=== PATIENT | female | born 1950 | race Caucasian/White ===

== ENCOUNTER 2021-02-13 23:49 | Inpatient (IN) | payer MEDICARE, OTHER ==
[~2021-02-13] VITALS: Ht 154.9 cm; Wt 123.0 kg
[~2021-02-13 23:49] MED LIST: ANTIVERT25 MG PO; MACROBID100 MG PO
[2021-02-14 00:30] LABS: BASOPHIL 0.3 % (0-2); EOSINOPHIL 0 % (0-7); HCT 47.7 % (37.0-47.0); HGB 15.9 g/dl (12.5-16.0); LYMPHOCYTE 28.1 % (15-48); MCH 30.1 pg (25.0-31.0); MCHC 33.3 g/dL (32.0-36.0); MCV 90.3 fL (78.0-100.0); MONOCYTE 5.4 % (0-12); MPV 9.8 fL (6.0-9.5); NEUTROPHIL 65.5 % (41-80); NRBC 0; PLT 222 K/uL (150-400); RBC 5.28 M/uL (4.20-5.40); RDW 12.2 % (11.5-14.0); WBC 9.9 K/uL (4.0-10.5)
[2021-02-14 00:44] LABS: INR 1.1 (0.9-1.2); PROTHROMBIN TIME 13.6 SECONDS (11.8-13.4); PTT 22.7 SECONDS (24.4-34.7)
[2021-02-14 00:49] LABS: ALBUMIN 3.6 g/dL (3.4-5.0); BILIRUBIN - TOTAL 0.8 mg/dL (0.2-1.0); C-REACTIVE PROTEIN 0.4 mg/dL (<=0.90); CREATININE 0.5 mg/dL (0.51-0.95); GLOBULIN (CALCULATION) 3.8 g/dL; POTASSIUM 4.6 mmol/L (3.5-5.1); TOTAL PROTEIN 7.4 g/dL (6.4-8.2)
[2021-02-14 00:55] LABS: PRO-BNP 765 pg/mL (<125)
[2021-02-14 00:59] LABS: D-DIMER 3.06 ug/mLFEU (0.00-0.41)
[2021-02-14 01:06] LABS: BILIRUBIN 1+ mg/dL (NEGATIVE); BLOOD 2+ Ery/uL (NEGATIVE); CLARITY CLEAR (CLEAR); COLOR YELLOW (YELLOW); GLUCOSE (U) NORMAL (NORMAL); LEUKOCYTES 3+ Leu/uL (NEGATIVE); NITRITE NEGATIVE (NEGATIVE); PROTEIN 2+ mg/dL (NEGATIVE)
[2021-02-14 01:34] LABS: URINARY WBC TNTC
[2021-02-14 01:35] LABS: AMORPHOUS PHOSPHATE CRYSTALS MODERATE; BACTERIA 4+
[2021-02-14 01:37] LABS: LACTIC ACID 1.1 mmol/L (0.4-1.9)
[2021-02-14 03:17] LABS: ACETAMINOPHEN (TYLENOL) < 2.0 ug/mL (10.0-30.0)
[2021-02-14 03:23] LABS: AMPHETAMINES NEGATIVE (NEGATIVE); BARBITURATES NEGATIVE (NEGATIVE); ECSTASY (MDMA) NEGATIVE (NEGATIVE); MARIJUANA (THC) NEGATIVE (NEGATIVE); METHADONE NEGATIVE (NEGATIVE); OPIATES NEGATIVE (NEGATIVE); OXYCODONE NEGATIVE (NEGATIVE)
[2021-02-14] MEDS ORDERED: LOPRESSOR25 MG PO (08:20)
[2021-02-14] MEDS ORDERED: ASPIRIN EC81 MG PO (08:20)
[2021-02-14] MEDS ORDERED: GLUCOTROL5 MG PO (08:21)
[2021-02-14] MEDS ORDERED: ZOCOR40 MG PO (08:21)
[2021-02-14] MEDS ORDERED: ZOLOFT100 MG PO (08:22)
[2021-02-14] MEDS ORDERED: METFORMIN HCL500 MG PO ×2 (08:22→08:23)
[2021-02-14] MEDS ORDERED: VITAMIN D3125 MC1 PO (08:24)
[2021-02-14] MEDS ORDERED: JANUVIA50 MG PO (08:24)
[2021-02-14] MEDS ORDERED: ZESTRIL5 MG PO (08:25)
--- NOTE | 2021-02-14 12:41 | NUR ---
02/14/21 Ms. Olivo lives at home with her spouse. She has a rw and 3in1. The couple have 4 children. The children assist with houekeeping and transportation. Will monitor for discharge planning needs.
[2021-02-15 07:03] LABS: BASOPHIL 0.3 % (0-2); EOSINOPHIL 0 % (0-7); HCT 46.6 % (37.0-47.0); HGB 14.8 g/dl (12.5-16.0); LYMPHOCYTE 10.9 % (15-48); MCH 30.3 pg (25.0-31.0); MCHC 31.8 g/dL (32.0-36.0); MONOCYTE 8.2 % (0-12); MPV 9.2 fL (6.0-9.5); NEUTROPHIL 79.7 % (41-80); NRBC 0; PLT 211 K/uL (150-400); RBC 4.89 M/uL (4.20-5.40); RDW 12.6 % (11.5-14.0); WBC 16.9 K/uL (4.0-10.5)
[2021-02-15 07:05] LABS: MCV 95.3 fL (78.0-100.0)
[2021-02-15 07:39] LABS: ALBUMIN 3.1 g/dL (3.4-5.0); BILIRUBIN - TOTAL 0.6 mg/dL (0.2-1.0); CREATININE 0.5 mg/dL (0.51-0.95); GLOBULIN (CALCULATION) 3.5 g/dL; MAGNESIUM 1.9 mg/dL (1.8-2.4); TOTAL PROTEIN 6.6 g/dL (6.4-8.2)
--- NOTE | 2021-02-16 01:49 | NUR ---
DAUGHTER CAME UP TO NURSE STATION SAYING THE PT WAS HAVING SEIZURE LIKE ACTIVITY, NURSE DID NOT SEE THE EPISODE. PT STARTED TO SHAKE AGAIN A FEW HOURS LATER WHILE NURSE WAS IN ROOM. CRISELDA ACOSTA CAME TO SEE PT AND SAID IT WAS NOT ANY TYPE OF SEIZURE ACTIVITY, THOUGH THE "EPISODE" HAD PASSED. NURSE STILL CONTINUOUSLY MONITORING
[2021-02-16 04:34] LABS: BASOPHIL 0.3 % (0-2); EOSINOPHIL 0 % (0-7); HCT 48.7 % (37.0-47.0); HGB 15.5 g/dl (12.5-16.0); LYMPHOCYTE 9.7 % (15-48); MCH 30.2 pg (25.0-31.0); MCHC 31.8 g/dL (32.0-36.0); MCV 94.7 fL (78.0-100.0); MONOCYTE 7.9 % (0-12); MPV 9.9 fL (6.0-9.5); NEUTROPHIL 80.7 % (41-80); NRBC 0; PLT 222 K/uL (150-400); RBC 5.14 M/uL (4.20-5.40); RDW 12.7 % (11.5-14.0); WBC 15.8 K/uL (4.0-10.5)
[2021-02-16 04:58] LABS: BILIRUBIN - TOTAL 0.6 mg/dL (0.2-1.0); BUN/CREAT RATIO (CALC) 29.1 RATIO; CREATININE 0.55 mg/dL (0.51-0.95); GLOBULIN (CALCULATION) 3.7 g/dL; MAGNESIUM 1.7 mg/dL (1.8-2.4); POTASSIUM 3.8 mmol/L (3.5-5.1); TOTAL PROTEIN 6.7 g/dL (6.4-8.2)
--- NOTE | 2021-02-16 06:42 | NUR ---
PRN MEDS AND TIMES TYLENOL SUP. 1124 1T ATIVAN 0.25 2208 1T ATIVAN 0.50 211 1T TORDOL 2340 1T LOPRESSOR 5MG 2340/ 0014 1 T MORPHINE 0043 1T BUMEX 0044 MAGNESIUM 0608
[2021-02-17 04:07] LABS: BASOPHIL 0.3 % (0-2); EOSINOPHIL 0 % (0-7); HCT 50.7 % (37.0-47.0); HGB 15.9 g/dl (12.5-16.0); LYMPHOCYTE 5.6 % (15-48); MCH 29.8 pg (25.0-31.0); MCHC 31.4 g/dL (32.0-36.0); MCV 94.9 fL (78.0-100.0); MONOCYTE 4.8 % (0-12); MPV 10.1 fL (6.0-9.5); NEUTROPHIL 87.9 % (41-80); NRBC 0; PLT 220 K/uL (150-400); RBC 5.34 M/uL (4.20-5.40); RDW 13.2 % (11.5-14.0); WBC 12.3 K/uL (4.0-10.5)
[2021-02-17 04:31] LABS: ALBUMIN 2.7 g/dL (3.4-5.0); BILIRUBIN - TOTAL 0.7 mg/dL (0.2-1.0); BUN/CREAT RATIO (CALC) 44.7 RATIO; CREATININE 0.47 mg/dL (0.51-0.95); GLOBULIN (CALCULATION) 4.1 g/dL; MAGNESIUM 2.1 mg/dL (1.8-2.4); POTASSIUM 3.9 mmol/L (3.5-5.1); TOTAL PROTEIN 6.8 g/dL (6.4-8.2)
--- NOTE | 2021-02-17 18:18 | NUR ---
02/17/21 1600 ORDERS RECEIVED FOR MIDLINE. PROCEDURE EXPLAINED TO PT'S FAMILY. PT PREPPED AND DRAPED IN SERILE FASHION, THE PT'S LEFT UPPER BASILIC VEIN WAS VISUALIZED THE SITE RITE SIX. A 21GA NEEDLE WAS USED, GOOD BLOOD RETURN WAS NOTED. THE GUIDE WIRE THREADED EASILY. THE SHEATHE WAS REMOVED AND THE CATHETER WAS PLACED OVER THE WIRE. THE WIRE WAS THEN REMOVED. A CONNECTOR WAS FLUSHED AND PLACED ON THE END OF THE CATHETER. PT HAS A 20GA 10CM POWER GLIDE MIDLINE CATHETER. PT TOLERATED WELL. GOOD FOR 29 DAYS. NOT A CENTRAL LINE.
[2021-02-18 06:11] LABS: BASOPHIL 0.4 % (0-2); EOSINOPHIL 0.3 % (0-7); HCT 49.4 % (37.0-47.0); HGB 15.7 g/dl (12.5-16.0); LYMPHOCYTE 7.4 % (15-48); MCHC 31.8 g/dL (32.0-36.0); MCV 94.3 fL (78.0-100.0); MONOCYTE 4.1 % (0-12); MPV 10.7 fL (6.0-9.5); NEUTROPHIL 85.6 % (41-80); NRBC 0; PLT 259 K/uL (150-400); RBC 5.24 M/uL (4.20-5.40); RDW 13.2 % (11.5-14.0)
[2021-02-18 06:35] LABS: ALBUMIN 2.5 g/dL (3.4-5.0); BILIRUBIN - TOTAL 0.6 mg/dL (0.2-1.0); BUN/CREAT RATIO (CALC) 54.8 RATIO; CREATININE 0.42 mg/dL (0.51-0.95); GLOBULIN (CALCULATION) 4.1 g/dL; MAGNESIUM 1.9 mg/dL (1.8-2.4); POTASSIUM 3.9 mmol/L (3.5-5.1); TOTAL PROTEIN 6.6 g/dL (6.4-8.2)
--- NOTE | 2021-02-18 18:27 | NUR ---
PT WAS TRANSFERED FROM TCU 3 TO TCU 5 AT 1300 1319 5MG VERSED WAS GIVEN 1330 20MG OF ETOMADATE PT WAS INTUBATED AT 1334 BY MD MARCELO RT SAM AND RT ILO KING DIPRIVAN WAS STARTED AT 1350 PT WAS ON 50MCG TILL 1430 BLOOD PRESSURE REMAINED STABLE DIPRIVAN WAS DECREASED TO 20MCG AT 1433 DR MARCELO PLACED A TRIPLE LUMEN ENTRAL LINE IN THE RIGHT INTERNAL JUGULAR VEIN FERNANDO HOLLIDAY PLACED A OG TUBE BOTH CENTRAL LINE AND OG TUBE CONFIRMED PALCEMENT BY CHEST X RAY DIPRIVAN WAS SWITCHED FROM MIDLINE TO CENTRAL LINE PT VITAL SIGNS STABLE NO DISTRESS IS NOTED APPEARS COMFORTABLE
--- NOTE | 2021-02-18 18:57 | NUR ---
[address] MARCELO OF MOST RECENT ABG RESULTS PH 7.427 PCO2 48.5 PO2 162 BICARB 31.9 BASE EXCESS 6.3 TOTAL CO2 33.4 OS SAT 99.8% NO NEW ORDERS SPOKE TO KARLA ABURTO 1858 FIO2 WAS DECREASED TO 80%
[2021-02-19 04:23] LABS: BASOPHIL 0.3 % (0-2); EOSINOPHIL 0 % (0-7); HCT 44.3 % (37.0-47.0); HGB 14.2 g/dl (12.5-16.0); LYMPHOCYTE 10.2 % (15-48); MCH 30.1 pg (25.0-31.0); MCHC 32.1 g/dL (32.0-36.0); MCV 93.9 fL (78.0-100.0); MONOCYTE 5.6 % (0-12); MPV 10.3 fL (6.0-9.5); NEUTROPHIL 82.7 % (41-80); NRBC 0; PLT 239 K/uL (150-400); RBC 4.72 M/uL (4.20-5.40); RDW 13.3 % (11.5-14.0); WBC 7.3 K/uL (4.0-10.5)
[2021-02-19 04:44] LABS: ALBUMIN 2.1 g/dL (3.4-5.0); BILIRUBIN - TOTAL 0.6 mg/dL (0.2-1.0); BUN/CREAT RATIO (CALC) 53.7 RATIO; CREATININE 0.54 mg/dL (0.51-0.95); GLOBULIN (CALCULATION) 3.6 g/dL; TOTAL PROTEIN 5.7 g/dL (6.4-8.2)
[2021-02-20 04:21] LABS: BASOPHIL 0.2 % (0-2); EOSINOPHIL 0 % (0-7); HCT 42.1 % (37.0-47.0); HGB 13.7 g/dl (12.5-16.0); LYMPHOCYTE 15.5 % (15-48); MCH 30.1 pg (25.0-31.0); MCHC 32.5 g/dL (32.0-36.0); MCV 92.5 fL (78.0-100.0); MONOCYTE 7.2 % (0-12); MPV 10.9 fL (6.0-9.5); NEUTROPHIL 76.1 % (41-80); NRBC 0; PLT 236 K/uL (150-400); RBC 4.55 M/uL (4.20-5.40); RDW 13.1 % (11.5-14.0); WBC 6.3 K/uL (4.0-10.5)
[2021-02-20 04:40] LABS: BILIRUBIN - TOTAL 0.7 mg/dL (0.2-1.0); BUN/CREAT RATIO (CALC) 70.8 RATIO; CREATININE 0.48 mg/dL (0.51-0.95); GLOBULIN (CALCULATION) 3.4 g/dL; MAGNESIUM 1.8 mg/dL (1.8-2.4); PHOSPHORUS 2.1 mg/dL (2.6-4.7); POTASSIUM 3.8 mmol/L (3.5-5.1); TOTAL PROTEIN 5.4 g/dL (6.4-8.2)
[2021-02-21 04:47] LABS: CREATININE 0.47 mg/dL (0.51-0.95); MAGNESIUM 1.6 mg/dL (1.8-2.4); POTASSIUM 3.9 mmol/L (3.5-5.1)
[2021-02-21 08:58] LABS: BASOPHIL 0.2 % (0-2); EOSINOPHIL 0 % (0-7); HCT 42.9 % (37.0-47.0); LYMPHOCYTE 16.9 % (15-48); MCHC 32.6 g/dL (32.0-36.0); MCV 92.1 fL (78.0-100.0); MONOCYTE 6.4 % (0-12); MPV 11.2 fL (6.0-9.5); NEUTROPHIL 75.7 % (41-80); NRBC 0; PLT 236 K/uL (150-400); RBC 4.66 M/uL (4.20-5.40); RDW 12.7 % (11.5-14.0); WBC 5.9 K/uL (4.0-10.5)
[2021-02-22 04:20] LABS: BASOPHIL 0.3 % (0-2); EOSINOPHIL 0 % (0-7); HCT 42.2 % (37.0-47.0); HGB 14.1 g/dl (12.5-16.0); LYMPHOCYTE 16.9 % (15-48); MCH 30.3 pg (25.0-31.0); MCHC 33.4 g/dL (32.0-36.0); MCV 90.6 fL (78.0-100.0); MONOCYTE 7.3 % (0-12); MPV 10.7 fL (6.0-9.5); NEUTROPHIL 74.5 % (41-80); NRBC 0; PLT 205 K/uL (150-400); RBC 4.66 M/uL (4.20-5.40); RDW 12.3 % (11.5-14.0); WBC 5.9 K/uL (4.0-10.5)
[2021-02-22 04:46] LABS: BUN/CREAT RATIO (CALC) 59.5 RATIO; CREATININE 0.42 mg/dL (0.51-0.95); PHOSPHORUS 3.4 mg/dL (2.6-4.7); POTASSIUM 4.3 mmol/L (3.5-5.1)
[2021-02-23 03:24] LABS: BUN/CREAT RATIO (CALC) 47.4 RATIO; CREATININE 0.38 mg/dL (0.51-0.95); MAGNESIUM 1.9 mg/dL (1.8-2.4); PHOSPHORUS 3.2 mg/dL (2.6-4.7); POTASSIUM 4.2 mmol/L (3.5-5.1)
[2021-02-23 03:46] LABS: BASOPHIL 0.4 % (0-2); EOSINOPHIL 0.1 % (0-7); HGB 15.8 g/dl (12.5-16.0); LYMPHOCYTE 11.3 % (15-48); MCH 30.1 pg (25.0-31.0); MCHC 32.9 g/dL (32.0-36.0); MCV 91.4 fL (78.0-100.0); MONOCYTE 6.9 % (0-12); MPV 10.8 fL (6.0-9.5); NEUTROPHIL 79.3 % (41-80); NRBC 0; PLT 248 K/uL (150-400); RBC 5.25 M/uL (4.20-5.40); RDW 12.3 % (11.5-14.0); WBC 10.3 K/uL (4.0-10.5)
--- NOTE | 2021-02-24 00:30 | NUR ---
PATIENT HAD INCREASING OXYGEN REQUIREMENTS. BEGINNING TO DESAT ON 100% NRB SAT PRIOR TO SETTING UP VAPOTHERM. PATIENT WAS 86-87% ABG DID NOT INDICATE BIPAP SETUP AT THIS TIME. DISCUSSED WITH CRISELDA ARZATE. PATIENT APPEARS MUCH MORE COMFORTABLE ON VAPOTHERM. PATIENT WOULD BE UNABLE TO TAKE OFF BIPAP AT THIS TIME IF SHE WERE TO VOMIT WHICH IS A CONTRAINDICATION. BREATH SOUNDS IMPROVING SINCE GIVEN BUMEX. BREATHING TREATMENTS CHANGED TO XOPENEX AND ATROVENT DUE TO PATIENT HAS BEEN TACHYCARDIC THIS EVENING. CONTINUE TO MONITOR PATIENT
--- NOTE | 2021-02-24 01:23 | NUR ---
PATIENT PRONED W/O INCIDENT
[2021-02-24 04:15] LABS: BASOPHIL 0.3 % (0-2); EOSINOPHIL 0 % (0-7); HCT 47.5 % (37.0-47.0); HGB 15.5 g/dl (12.5-16.0); LYMPHOCYTE 9.6 % (15-48); MCH 29.8 pg (25.0-31.0); MCHC 32.6 g/dL (32.0-36.0); MCV 91.3 fL (78.0-100.0); MPV 10.8 fL (6.0-9.5); NEUTROPHIL 78.9 % (41-80); NRBC 0; PLT 254 K/uL (150-400); RDW 12.2 % (11.5-14.0); WBC 11.3 K/uL (4.0-10.5)
[2021-02-24 04:32] LABS: BUN/CREAT RATIO (CALC) 44.7 RATIO; CREATININE 0.47 mg/dL (0.51-0.95); MAGNESIUM 1.9 mg/dL (1.8-2.4); PHOSPHORUS 2.7 mg/dL (2.6-4.7); POTASSIUM 3.6 mmol/L (3.5-5.1)
[2021-02-25 06:36] LABS: BUN/CREAT RATIO (CALC) 51.1 RATIO; CREATININE 0.45 mg/dL (0.51-0.95); POTASSIUM 3.7 mmol/L (3.5-5.1)
[2021-02-25 06:40] LABS: BASOPHIL 0.2 % (0-2); EOSINOPHIL 0 % (0-7); HCT 47.5 % (37.0-47.0); LYMPHOCYTE 10.9 % (15-48); MCH 29.3 pg (25.0-31.0); MCHC 31.6 g/dL (32.0-36.0); MCV 92.8 fL (78.0-100.0); MONOCYTE 7.1 % (0-12); NEUTROPHIL 80.5 % (41-80); NRBC 0; PLT 248 K/uL (150-400); RBC 5.12 M/uL (4.20-5.40); RDW 12.4 % (11.5-14.0); WBC 10.8 K/uL (4.0-10.5)
[2021-02-26 05:55] LABS: BASOPHIL 0.2 % (0-2); EOSINOPHIL 0 % (0-7); HCT 44.8 % (37.0-47.0); HGB 14.5 g/dl (12.5-16.0); LYMPHOCYTE 9.5 % (15-48); MCH 30.1 pg (25.0-31.0); MCHC 32.4 g/dL (32.0-36.0); MCV 93.1 fL (78.0-100.0); MONOCYTE 6.5 % (0-12); MPV 10.3 fL (6.0-9.5); NRBC 0; PLT 238 K/uL (150-400); RBC 4.81 M/uL (4.20-5.40); RDW 12.3 % (11.5-14.0); WBC 11.9 K/uL (4.0-10.5)
[2021-02-26 06:21] LABS: ALBUMIN 2.2 g/dL (3.4-5.0); BILIRUBIN - TOTAL 0.8 mg/dL (0.2-1.0); BUN/CREAT RATIO (CALC) 54.8 RATIO; CREATININE 0.42 mg/dL (0.51-0.95); GLOBULIN (CALCULATION) 3.3 g/dL; MAGNESIUM 1.9 mg/dL (1.8-2.4); PHOSPHORUS 3.1 mg/dL (2.6-4.7); POTASSIUM 3.7 mmol/L (3.5-5.1); TOTAL PROTEIN 5.5 g/dL (6.4-8.2)
--- NOTE | 2021-02-26 14:52 | NUR ---
discussed EN recommendations with MD Guerrero. Product delivered to unit and informed Cynthia RN: assessment in EMR and copy placed in chart.
[2021-02-27 03:38] LABS: BASOPHIL 0.2 % (0-2); EOSINOPHIL 0 % (0-7); HCT 46.3 % (37.0-47.0); HGB 14.8 g/dl (12.5-16.0); LYMPHOCYTE 5.9 % (15-48); MCH 29.7 pg (25.0-31.0); MONOCYTE 4.8 % (0-12); MPV 11.1 fL (6.0-9.5); NEUTROPHIL 88.1 % (41-80); NRBC 0; PLT 239 K/uL (150-400); RBC 4.98 M/uL (4.20-5.40); RDW 12.5 % (11.5-14.0)
[2021-02-27 03:48] LABS: WBC 26.6 K/uL (4.0-10.5)
[2021-02-27 03:55] LABS: BUN/CREAT RATIO (CALC) 48.3 RATIO; CREATININE 0.87 mg/dL (0.51-0.95); MAGNESIUM 2.1 mg/dL (1.8-2.4); POTASSIUM 4.3 mmol/L (3.5-5.1)
--- NOTE | 2021-02-27 14:59 | NUR ---
1140 DR MARCELO NOTIFIED OF DECREASED AND CLOUDY URINE OUTPUT ORDERS NOTED
--- NOTE | 2021-02-27 15:01 | NUR ---
1400 NOTIFIED OF URINE OUTPUT AND HEART RATE
--- NOTE | 2021-02-28 02:39 | NUR ---
CALLED MOHINI AT PHARMACY AFTER HOURS TO SEE IF THERE NEEDS TO BE A VANC TROUGH DRAWN ON MRS. GODDARD OR NOT. SHE HAS NOT HAD ONE DRAWN SINCE THE . MOHINI SAID THAT SHE DOES NOT NEED ONE IF THE PHARMACY HAS NOT ORDERED ONE. ER,RN
[2021-02-28 04:00] LABS: BASOPHIL 0.2 % (0-2); EOSINOPHIL 0 % (0-7); HGB 14.7 g/dl (12.5-16.0); LYMPHOCYTE 4.3 % (15-48); MCH 30.1 pg (25.0-31.0); MCV 94.1 fL (78.0-100.0); MONOCYTE 4.8 % (0-12); MPV 11.1 fL (6.0-9.5); NEUTROPHIL 89.6 % (41-80); NRBC 0; PLT 231 K/uL (150-400); RBC 4.89 M/uL (4.20-5.40); RDW 12.6 % (11.5-14.0); WBC 22.5 K/uL (4.0-10.5)
[2021-02-28 04:16] LABS: CREATININE 1.88 mg/dL (0.51-0.95); MAGNESIUM 2.2 mg/dL (1.8-2.4); POTASSIUM 4.5 mmol/L (3.5-5.1)
[2021-02-28 06:54] LABS: BILIRUBIN NEGATIVE (NEGATIVE); BLOOD 3+ Ery/uL (NEGATIVE); COLOR YELLOW (YELLOW); GLUCOSE (U) NORMAL (NORMAL); LEUKOCYTES 1+ Leu/uL (NEGATIVE); NITRITE NEGATIVE (NEGATIVE); PROTEIN TRACE (LOW) mg/dL (NEGATIVE); SPECIFIC GRAVITY >=1.030 (1.001-1.030); UROBILINOGEN 0.2 mg/dL (0.2-1.0)
[2021-02-28 07:01] LABS: CLARITY HAZY (CLEAR)
[2021-02-28 07:03] LABS: URINARY WBC TNTC; YEAST PRESENT
[2021-02-28 07:04] LABS: BACTERIA 2+
--- NOTE | 2021-02-28 15:12 | NUR ---
PER PHARMACY- HAD TO GIVE ANTIBIOTICS ONE A TIME DUE TO COMPATABILITY. CALLED TO VERIFY SO EACH ONE HAD TO RUN SEPERATLY CAUSING TIMES TO BE OFF. DAVIAN WAS MADE AWARE WELL.
[2021-03-01 04:12] LABS: BASOPHIL 0.1 % (0-2); EOSINOPHIL 0 % (0-7); HCT 40.5 % (37.0-47.0); HGB 13.2 g/dl (12.5-16.0); LYMPHOCYTE 3.1 % (15-48); MCH 30.3 pg (25.0-31.0); MCHC 32.6 g/dL (32.0-36.0); MCV 92.9 fL (78.0-100.0); MONOCYTE 4.6 % (0-12); MPV 11.3 fL (6.0-9.5); NEUTROPHIL 91.4 % (41-80); NRBC 0; PLT 205 K/uL (150-400); RBC 4.36 M/uL (4.20-5.40); RDW 12.6 % (11.5-14.0); WBC 16.3 K/uL (4.0-10.5)
[2021-03-01 04:42] LABS: BILIRUBIN - TOTAL 0.5 mg/dL (0.2-1.0); CREATININE 1.85 mg/dL (0.51-0.95); GLOBULIN (CALCULATION) 3.2 g/dL; POTASSIUM 4.3 mmol/L (3.5-5.1); TOTAL PROTEIN 5.2 g/dL (6.4-8.2)
[2021-03-02 07:00] LABS: BASOPHIL 0.1 % (0-2); EOSINOPHIL 0 % (0-7); HGB 12.5 g/dl (12.5-16.0); LYMPHOCYTE 3.4 % (15-48); MCH 29.9 pg (25.0-31.0); MCHC 32.9 g/dL (32.0-36.0); MCV 90.9 fL (78.0-100.0); MONOCYTE 6.1 % (0-12); MPV 10.6 fL (6.0-9.5); NEUTROPHIL 89.4 % (41-80); NRBC 0; PLT 207 K/uL (150-400); RBC 4.18 M/uL (4.20-5.40); RDW 12.4 % (11.5-14.0); WBC 11.5 K/uL (4.0-10.5)
[2021-03-02 07:18] LABS: BILIRUBIN - TOTAL 0.4 mg/dL (0.2-1.0); CREATININE 1.5 mg/dL (0.51-0.95); GLOBULIN (CALCULATION) 3.1 g/dL; TOTAL PROTEIN 5.1 g/dL (6.4-8.2)
[2021-03-03 04:44] LABS: BASOPHIL 0.2 % (0-2); EOSINOPHIL 0 % (0-7); HCT 38.7 % (37.0-47.0); HGB 12.8 g/dl (12.5-16.0); LYMPHOCYTE 2.3 % (15-48); MCH 30.1 pg (25.0-31.0); MCHC 33.1 g/dL (32.0-36.0); MCV 91.1 fL (78.0-100.0); MONOCYTE 5.3 % (0-12); MPV 10.7 fL (6.0-9.5); NRBC 0; PLT 218 K/uL (150-400); RBC 4.25 M/uL (4.20-5.40); RDW 12.6 % (11.5-14.0); WBC 11.3 K/uL (4.0-10.5)
[2021-03-03 04:46] LABS: NEUTROPHIL 91.3 % (41-80)
[2021-03-03 05:29] LABS: CREATININE 1.38 mg/dL (0.51-0.95); POTASSIUM 4.2 mmol/L (3.5-5.1)
[2021-03-04 04:04] LABS: BASOPHIL 0.1 % (0-2); EOSINOPHIL 0 % (0-7); HCT 38.8 % (37.0-47.0); HGB 12.7 g/dl (12.5-16.0); LYMPHOCYTE 2.2 % (15-48); MCHC 32.7 g/dL (32.0-36.0); MCV 91.5 fL (78.0-100.0); MONOCYTE 5.8 % (0-12); MPV 10.9 fL (6.0-9.5); NRBC 0; PLT 212 K/uL (150-400); RBC 4.24 M/uL (4.20-5.40); RDW 12.8 % (11.5-14.0); WBC 13.4 K/uL (4.0-10.5)
[2021-03-04 04:17] LABS: NEUTROPHIL 90.8 % (41-80)
[2021-03-04 04:34] LABS: ALBUMIN 2.2 g/dL (3.4-5.0); BILIRUBIN - TOTAL 0.6 mg/dL (0.2-1.0); CREATININE 1.26 mg/dL (0.51-0.95); GLOBULIN (CALCULATION) 3.2 g/dL; POTASSIUM 4.4 mmol/L (3.5-5.1); TOTAL PROTEIN 5.4 g/dL (6.4-8.2)
[2021-03-05 04:16] LABS: BASOPHIL 0.1 % (0-2); EOSINOPHIL 0 % (0-7); HCT 39.6 % (37.0-47.0); HGB 12.8 g/dl (12.5-16.0); LYMPHOCYTE 2.1 % (15-48); MCH 29.8 pg (25.0-31.0); MCHC 32.3 g/dL (32.0-36.0); MCV 92.3 fL (78.0-100.0); MONOCYTE 4.6 % (0-12); MPV 11.1 fL (6.0-9.5); NRBC 0; PLT 198 K/uL (150-400); RBC 4.29 M/uL (4.20-5.40); RDW 12.9 % (11.5-14.0); WBC 15.1 K/uL (4.0-10.5)
[2021-03-05 04:20] LABS: NEUTROPHIL 92.1 % (41-80)
[2021-03-05 04:33] LABS: ALBUMIN 2.3 g/dL (3.4-5.0); BILIRUBIN - TOTAL 0.6 mg/dL (0.2-1.0); CREATININE 1.15 mg/dL (0.51-0.95); GLOBULIN (CALCULATION) 3.1 g/dL; TOTAL PROTEIN 5.4 g/dL (6.4-8.2)
[2021-03-06 04:17] LABS: BASOPHIL 0.1 % (0-2); EOSINOPHIL 0 % (0-7); HCT 39.6 % (37.0-47.0); HGB 12.6 g/dl (12.5-16.0); LYMPHOCYTE 4.5 % (15-48); MCH 29.6 pg (25.0-31.0); MCHC 31.8 g/dL (32.0-36.0); MONOCYTE 6.6 % (0-12); MPV 10.8 fL (6.0-9.5); NEUTROPHIL 87.7 % (41-80); NRBC 0; PLT 175 K/uL (150-400); RBC 4.26 M/uL (4.20-5.40); RDW 13.1 % (11.5-14.0); WBC 22.3 K/uL (4.0-10.5)
[2021-03-06 04:30] LABS: MAGNESIUM 2.4 mg/dL (1.8-2.4); PHOSPHORUS 4.6 mg/dL (2.6-4.7)
[2021-03-06 04:31] LABS: CREATININE 1.04 mg/dL (0.51-0.95); POTASSIUM 4.5 mmol/L (3.5-5.1)
[2021-03-06 21:11] LABS: BILIRUBIN NEGATIVE (NEGATIVE); BLOOD 3+ Ery/uL (NEGATIVE); CLARITY CLEAR (CLEAR); COLOR YELLOW (YELLOW); GLUCOSE (U) NORMAL (NORMAL); LEUKOCYTES 1+ Leu/uL (NEGATIVE); NITRITE NEGATIVE (NEGATIVE); PROTEIN TRACE (LOW) mg/dL (NEGATIVE); SPECIFIC GRAVITY 1.015 (1.001-1.030); UROBILINOGEN 0.2 mg/dL (0.2-1.0); pH 5.5 (5.0-9.0)
[2021-03-06 21:23] LABS: URINARY RBC TNTC
[2021-03-06 21:24] LABS: BACTERIA TRACE
[2021-03-06 21:25] LABS: URINE CREATININE 16.4 mg/dL (29.00-226.00); URINE TOTAL PROTEIN-RANDOM 43.2 mg/dL (<11.9)
[2021-03-06 21:26] LABS: AMORPHOUS URATES CRYSTALS TRACE; YEAST PRESENT
[2021-03-07 04:29] LABS: CREATININE 0.96 mg/dL (0.51-0.95); POTASSIUM 5.4 mmol/L (3.5-5.1)
[2021-03-07 08:18] LABS: URINE CREATININE 15.96 mg/dL (29.00-226.00)
[2021-03-08 05:44] LABS: CREATININE 0.99 mg/dL (0.51-0.95); PHOSPHORUS 4.2 mg/dL (2.6-4.7); POTASSIUM 4.8 mmol/L (3.5-5.1)
--- NOTE | 2021-03-08 18:39 | NUR ---
1630 PT STARTED ON SPONTANOUS BREATHING TRAIL PER DR BARRY'S ORDERS BY RT. PT TOLERATING WELL
[2021-03-09 04:18] LABS: CREATININE 0.92 mg/dL (0.51-0.95); POTASSIUM 4.2 mmol/L (3.5-5.1)
[2021-03-09 15:08] LABS: ANA DIRECT Negative (Negative)
[2021-03-10 04:29] LABS: BASOPHIL 0.1 % (0-2); EOSINOPHIL 0.7 % (0-7); HCT 30.9 % (37.0-47.0); HGB 9.9 g/dl (12.5-16.0); LYMPHOCYTE 7.9 % (15-48); MCV 93.6 fL (78.0-100.0); MONOCYTE 5.1 % (0-12); MPV 10.6 fL (6.0-9.5); NEUTROPHIL 85.9 % (41-80); NRBC 0; PLT 108 K/uL (150-400); WBC 12.2 K/uL (4.0-10.5)
[2021-03-10 04:48] LABS: ALBUMIN 1.8 g/dL (3.4-5.0); CREATININE 0.77 mg/dL (0.51-0.95); MAGNESIUM 1.9 mg/dL (1.8-2.4); PHOSPHORUS 3.8 mg/dL (2.6-4.7)
[2021-03-11 04:35] LABS: BASOPHIL 0.1 % (0-2); HCT 29.7 % (37.0-47.0); HGB 9.4 g/dl (12.5-16.0); MCH 30.1 pg (25.0-31.0); MCHC 31.6 g/dL (32.0-36.0); MCV 95.2 fL (78.0-100.0); MONOCYTE 5.8 % (0-12); MPV 10.5 fL (6.0-9.5); NEUTROPHIL 80.6 % (41-80); NRBC 0; PLT 105 K/uL (150-400); RBC 3.12 M/uL (4.20-5.40); RDW 13.1 % (11.5-14.0); WBC 9.3 K/uL (4.0-10.5)
[2021-03-11 04:57] LABS: ALBUMIN 1.9 g/dL (3.4-5.0); BILIRUBIN - TOTAL 0.5 mg/dL (0.2-1.0); CREATININE 0.69 mg/dL (0.51-0.95); GLOBULIN (CALCULATION) 2.9 g/dL; POTASSIUM 3.8 mmol/L (3.5-5.1); TOTAL PROTEIN 4.8 g/dL (6.4-8.2)
--- NOTE | 2021-03-11 10:41 | NUR ---
03/10/21 CALLED RESPIRATORY REGARDING THE ET PLACEMENT. REPORT WAS GIVEN ET WAS 23 AT THE LIP BUT NOW IT IS 22 AT THE LIP. RT CONFIRMED PLACEMENT. ASHA MADE AWARE WELL.
[2021-03-11 12:07] LABS: CALCIUM, SERUM 10.2 mg/dL (8.7-10.3); PTH, INTACT 35 pg/mL (15-65)
[2021-03-11 15:07] LABS: A/G RATIO 1.1 (0.7-1.7); ALBUMIN 2.3 g/dL (2.9-4.4); ALPHA-1-GLOBULIN 0.2 g/dL (0.0-0.4); ALPHA-2-GLOBULIN 0.7 g/dL (0.4-1.0); BETA GLOBULIN 0.9 g/dL (0.7-1.3); GAMMA GLOBULIN 0.5 g/dL (0.4-1.8); GLOBULIN, TOTAL 2.3 g/dL (2.2-3.9); IMMUNOFIXATION RESULT, SERUM Comment: (.); IMMUNOGLOBULIN A, QN, SERUM 216 mg/dL (87-352); IMMUNOGLOBULIN G, QN, SERUM 503 mg/dL (586-1602); IMMUNOGLOBULIN M, QN, SERUM 81 mg/dL (26-217); M-SPIKE Not Observed g/dL (Not Observed); PROTEIN, TOTAL, SERUM 4.6 g/dL (6.0-8.5)
[2021-03-11 16:07] LABS: ANTIMYELOPEROXIDASE (MPO) ABS <9.0 U/mL (0.0-9.0); ANTIPROTEINASE 3 (PR-3) ABS <3.5 U/mL (0.0-3.5); ATYPICAL PANCA <1:20 titer (Neg:<1:20); CYTOPLASMIC (C-ANCA) <1:20 titer (Neg:<1:20); PERINUCLEAR (P-ANCA) <1:20 titer (Neg:<1:20)
[2021-03-12 07:41] LABS: CREATININE 0.53 mg/dL (0.51-0.95); MAGNESIUM 1.7 mg/dL (1.8-2.4); PHOSPHORUS 2.7 mg/dL (2.6-4.7); POTASSIUM 3.3 mmol/L (3.5-5.1)
--- NOTE | 2021-03-12 10:50 | NUR ---
Discussed TF recommendations with MG Johnson: concerns with protein intake from nephrology therefore rate of TF held at 30cc/hr. alternate adjustments to modular protein being given other than TID: Proteinex BID to provide 1.35 gram protein/kg: (TF rate @50cc/hr) Proteinex q day will provide 1.2gr/protein per kg. (TF rate @ 50cc/hr) RN to discuss with MD Guerrero; will follow
[2021-03-13 05:23] LABS: BASOPHIL 0.2 % (0-2); EOSINOPHIL 2.7 % (0-7); HCT 26.6 % (37.0-47.0); HGB 8.5 g/dl (12.5-16.0); LYMPHOCYTE 15.1 % (15-48); MCH 30.1 pg (25.0-31.0); MCV 94.3 fL (78.0-100.0); MONOCYTE 4.9 % (0-12); MPV 11.2 fL (6.0-9.5); NEUTROPHIL 76.5 % (41-80); NRBC 0; PLT 126 K/uL (150-400); RBC 2.82 M/uL (4.20-5.40); RDW 12.7 % (11.5-14.0); WBC 8.5 K/uL (4.0-10.5)
[2021-03-13 05:41] LABS: ALBUMIN 1.9 g/dL (3.4-5.0); BILIRUBIN - TOTAL 0.6 mg/dL (0.2-1.0); CREATININE 0.5 mg/dL (0.51-0.95); GLOBULIN (CALCULATION) 2.9 g/dL; MAGNESIUM 1.6 mg/dL (1.8-2.4); PHOSPHORUS 2.7 mg/dL (2.6-4.7); POTASSIUM 3.6 mmol/L (3.5-5.1); TOTAL PROTEIN 4.8 g/dL (6.4-8.2)
--- NOTE | 2021-03-13 12:58 | NUR ---
03/13/[address] Guerrero's request, Mr. Olivo was contacted to discuss a possible referral to [facility]. Mr. Olivo stated that he did not "want to go further with treatment". He said he and his spouse and discussed ventilation in the past and Ms. Olivo did not wish to be intubated. Mr. Olivo said he wanted to try the intubation for awhile. He said he would like her removed from the ventilator in a day or two. Mr. Olivo was informed that our conversation would be relayed to Dr. Guerrero. A report was given to Dr. Guerrero.
--- NOTE | 2021-03-13 16:05 | NUR ---
FAMILY REQUESTED PT BE EXTUBATED. RT CALLED ONCE FAMILY WAS IN ROOM. RT EXTUBATED AND SUCTIOND PT AND PLACED HER ON 4L O2. SAT STABLE AT THIS TIME. FAMILY AT BEDSIDE. PATIENT IS COMFORT MEASURES ONLY AT THIS TIME.
--- NOTE | 2021-03-13 18:21 | NUR ---
DAUGHTERS LEAVING FOR THE NIGHT. STAYING WITH PATIENT. DURGA [phone] SIMONE [phone] CONTACT ANY DAUGHTER IF ANY ISSUES.
--- NOTE | 2021-03-14 14:33 | NUR ---
03/14/21 Ms. Olivo is comfort care. Emotional support is being provided with the family.
--- NOTE | 2021-03-14 16:48 | NUR ---
03/14/21 [facility] RN, reports daughters to be requesting Hospice services. This health social work professor met with Ly Abreu and Pooja Olivo. Dr. Guerrero joined the conversation. A plan was devised for a MRI to be performed, a referral would be made to Hospice, and family will have further discussion re: their wishes. - A referral was made to Hospice. Hospice will meet with family once they are certain they would like to return home with Hospice. Pt will need 02 at 2 L, hospital bed, overbed tray, and EMS DNR form completed.
--- NOTE | 2021-03-15 10:07 | NUR ---
03/15/21 The family has decided to return home with Hospice today. Hospice will meet with the family at 10:30 today. Solution Coordinator has been requested to complete An EMS/DNR form. Hospice will arrange for 02, hospital bed and overbed tray. _ Report given to MS Papito Marquez RN.
[2021-03-15] MEDS ORDERED: MORPHINE S20 MG/5 ML SL (11:32)
--- NOTE | 2021-03-15 12:30 | NUR ---
1230 CALLED IN TO THE ROOM AND PATIENT WAS FOUND WITHOUT ANY RESP OR BREATHING. CHECKED FOR A PULSE AND NONE WAS FOUND. DR. MARCELO WAS NOTIFED AND HE PROUNCED THE PATIENT. SHEN GARCIA WAS NOTIFED OF THE PASSING AND HAS ARRIVED TO BE WITH THE FAMILY. 1300 FAMILY WAS SIGNED ALL THE PAPERS AND CALLED THE HOME. 1330 IV SITES HAVE BEEN REMOVED AND THE [place] HAS BEEN REMOVED AND THE PAITENT WAS CLEANED AND READY FOR THE HOME TO ARRIVE. 1445 [facility] ARRIVED FOR TRANSPORT TO THE HOME.
== END 2021-03-15 14:45 | disposition expired | DRG 870 ==
LOC: FER 23:49 → FTCU 02-14 07:31 → FMS 03-14 14:48
PROVIDERS: Allergy & Immunology Allergy; Emergency Medicine Emergency Medical Services; Internal Medicine; Internal Medicine Nephrology; ADMIT Internal Medicine
PROC: 5A09557 Assistance with Respiratory Ventilation, Greater than 96 Consecutive Hours, Continuous Positive Airway Pressure (ICD-10-PCS; 2021-02-14)
PROC: 05HY33Z Insertion of Infusion Device into Upper Vein, Percutaneous Approach (ICD-10-PCS; 2021-02-17)
PROC: 0BH17EZ Insertion of Endotracheal Airway into Trachea, Via Natural or Artificial Opening (ICD-10-PCS; principal; 2021-02-18)
PROC: 5A1955Z Respiratory Ventilation, Greater than 96 Consecutive Hours (ICD-10-PCS; 2021-02-18)
PROC: B543ZZA Ultrasonography of Right Jugular Veins, Guidance (ICD-10-PCS; 2021-02-18)
PROC: 02HV33Z Insertion of Infusion Device into Superior Vena Cava, Percutaneous Approach (ICD-10-PCS; 2021-02-18)
PROC: 0BH17EZ Insertion of Endotracheal Airway into Trachea, Via Natural or Artificial Opening (ICD-10-PCS; 2021-02-26)
PROC: 5A1955Z Respiratory Ventilation, Greater than 96 Consecutive Hours (ICD-10-PCS; 2021-02-26)
DX: A41.9 Sepsis, unspecified organism (principal); G93.41 Metabolic encephalopathy; J18.9 Pneumonia, unspecified organism; J96.01 Acute respiratory failure with hypoxia; J96.02 Acute respiratory failure with hypercapnia; G03.9 Meningitis, unspecified; N17.0 Acute kidney failure with tubular necrosis; N10 Acute pyelonephritis; J44.0 Chronic obstructive pulmonary disease with (acute) lower respiratory infection; J44.1 Chronic obstructive pulmonary disease with (acute) exacerbation; E87.0 Hyperosmolality and hypernatremia; I50.30 Unspecified diastolic (congestive) heart failure; B37.41 Candidal cystitis and urethritis; J95.851 Ventilator associated pneumonia; Z68.41 Body mass index [BMI] 40.0-44.9, adult; Z66 Do not resuscitate; Z51.5 Encounter for palliative care; Z20.822 Contact with and (suspected) exposure to COVID-19; I25.10 Atherosclerotic heart disease of native coronary artery without angina pectoris; F17.200 Nicotine dependence, unspecified, uncomplicated; E78.00 Pure hypercholesterolemia, unspecified; R65.20 Severe sepsis without septic shock; F41.9 Anxiety disorder, unspecified; F32.9 Major depressive disorder, single episode, unspecified; E66.9 Obesity, unspecified; K80.20 Calculus of gallbladder without cholecystitis without obstruction; M19.90 Unspecified osteoarthritis, unspecified site; B95.4 Other streptococcus as the cause of diseases classified elsewhere; E11.22 Type 2 diabetes mellitus with diabetic chronic kidney disease; N18.9 Chronic kidney disease, unspecified; L89.151 Pressure ulcer of sacral region, stage 1; E11.65 Type 2 diabetes mellitus with hyperglycemia; T38.0X5A Adverse effect of glucocorticoids and synthetic analogues, initial encounter; R13.10 Dysphagia, unspecified; I27.20 Pulmonary hypertension, unspecified; J98.2 Interstitial emphysema; E83.52 Hypercalcemia; E11.649 Type 2 diabetes mellitus with hypoglycemia without coma; L89.152 Pressure ulcer of sacral region, stage 2; Z79.82 Long term (current) use of aspirin; Z79.84 Long term (current) use of oral hypoglycemic drugs; Z79.899 Other long term (current) drug therapy; Z88.2 Allergy status to sulfonamides; I25.2 Old myocardial infarction; Z80.1 Family history of malignant neoplasm of trachea, bronchus and lung; Z82.49 Family history of ischemic heart disease and other diseases of the circulatory system; Z95.5 Presence of coronary angioplasty implant and graft; Z87.440 Personal history of urinary (tract) infections
CPT/HCPCS: 31500; 36415; 36600; 70450; 70551; 70553; 71045; 71275; 72125; 74018; 76705; 76770; 80048; 80053; 80069; 80202; 80305; 81001; 82310; 82550; 82570; 82784; 82803; 82962; 83036; 83520; 83605; 83735; 83880; 83935; 83970; 84100; 84145; 84155; 84156; 84165; 84300; 84439; 84443; 84478; 84484; 85025; 85379; 85610; 85730; 86038; 86060; 86140; 86160; 86256; 86335; 87040; 87045; 87046; 87076; 87088; 87205; 87449; 93005; 94002; 94640; 94660; 94762; 96365; 96366; 96375; 96376; A9579; C1751; C9113; G0480; J0133; J0630; J0637; J0696; J1642; J1644; J1650; J1815; J1885; J1940; J1956; J2060; J2185; J2250; J2270; J2543; J2704; J2920; J2930; J3010; J3360; J3370; J3475; J3480; J7030; J7050; J7060; J7070; J7510; J7512; Q9967; U0002